=== PATIENT | female | born 1995 | race American Indian/Alaskan Native ===

== ENCOUNTER 2017-12-03 12:42 | Emergency (ER) | payer SELFPAY ==
[2017-12-03 12:49] VITALS: RESP 18; TEMP 98.5
--- NOTE | 2017-12-03 14:31 | C.PDOC ---
History Of Present Illness 22 yr old female presents to the ER with complaints of nausea and vomiting, intermittent for the past 2 weeks. Patient believes she is . Currently, patient denies fever, chills, chest pain, SOB, nausea, vomiting, abdominal pain , dysuria, vaginal discharge, vaginal bleeding, weakness or numbness. Time Seen by Provider: 12/03/17 13:39 Chief Complaint (Nursing): GI Problem History Per: Patient History/Exam Limitations: no limitations Onset/Duration Of Symptoms: Intermittent Episodes (2 weeks) Past Medical History Reviewed: Historical Data, Nursing Documentation, Vital Signs Vital Signs: Last Vital Signs Temp 98.5 F 12/03/17 14:36 Pulse 74 12/03/17 14:36 Resp 18 12/03/17 14:36 BP 119/78 12/03/17 14:36 Pulse Ox 99 12/03/17 14:36 Family History: States: No Known Family Hx - Social History Hx Alcohol Use: No Hx Substance Use: No - Immunization History Hx Influenza Vaccination: No Review Of Systems Except As Marked, All Systems Reviewed And Found Negative. Constitutional: Negative for: Fever, Chills Cardiovascular: Negative for: Chest Pain Respiratory: Negative for: Shortness of Breath Gastrointestinal: Negative for: Nausea, Vomiting, Abdominal Pain Genitourinary: Negative for: Dysuria, Vaginal Discharge, Vaginal Bleeding Neurological: Negative for: Weakness, Numbness Physical Exam - Physical Exam Appears: Non-toxic, No Acute Distress Skin: No Rash Head: Atraumatic, Normacephalic Eye(s): bilateral: Normal Inspection, PERRL, EOMI Oral Mucosa: Moist Respiratory: Normal Breath Sounds, No Rales, No Rhonchi, No Stridor, No Wheezing Gastrointestinal/Abdominal: Normal Exam, Soft, No Tenderness, No Guarding, No Rebound Back: Normal Inspection, No CVA Tenderness Extremity: Normal ROM, No Swelling Neurological/Psych: Oriented x3, Normal Speech, Normal Motor, Normal Sensation ED Course And Treatment O2 Sat by Pulse Oximetry: 100 (RA) Pulse Ox Interpretation: Normal Disposition - Disposition Referrals: [facility] [Outside] [facility] [Outside] Disposition: HOME/ ROUTINE Disposition Time: 14:27 Additional Instructions: Follow up with the medical doctor within 1-2 days. Return if worsened. Instructions: (ED) Forms: [facility] (Lao) - Clinical Impression Clinical Impression: - PA / [employer] / Resident Statement MD/DO has reviewed & agrees with the documentation as recorded. - Scribe Statement The provider has reviewed the documentation as recorded by the Scribe Sylwia Tipton All medical record entries made by the Ermiasibjacky were at my direction and personally dictated by me. I have reviewed the chart and agree that the record accurately reflects my personal performance of the history, physical exam, medical decision making, and the department course for this patient. I have also personally directed, reviewed, and agree with the discharge instructions and disposition.
[2017-12-03 14:38] VITALS: BP 119/78; PULSE 74
[2017-12-03 16:41] VITALS: O2SAT 100
== END 2017-12-03 14:36 | disposition home or self-care (01) ==
LOC: C.ER 12:42
DX: O26.891 Other specified pregnancy related conditions, first trimester (principal); Z3A.00 Weeks of gestation of pregnancy not specified